=== PATIENT | female | born 1950 | race Caucasian/White ===

== ENCOUNTER 2021-07-04 12:46 | Outpatient (CLI) | payer MEDICARE, SELFPAY ==
--- NOTE | 2021-07-04 | XR_ITS ---
WS: [id number] SCREENING DEXA SCAN [employer] CLINICAL INFORMATION: ASYMPTOMATIC MENOPAUSE COMPARISON: 2018 FINDINGS: The L1-L4 bone mineral density measures 1.256 g/cm2. This corresponds to a T score score of 0.6 and Z score of 1.2. Left femoral neck bone mineral density measures 1.101 g/cm2. This corresponds to a T score of 0.7 and Z score of 1.4. Right femoral neck bone mineral density measures 1.064 g/cm2. This corresponds to a T score 0.4of and Z score of 1.1. Mean femoral neck bone mineral density measures 1.082 g/cm2. This corresponds to a T score of 0.6 and Z score of 1.2. XR/XR DEXA axial skeleton* [id number] IMPRESSION: Normal bone mineralization. Patient's FRAX calculated 10 year probability for major osteoporotic fracture i s 7.1 % and osteoporotic hip fracture is 0.4%.
--- NOTE | 2021-07-04 13:08 | MM_ITS ---
WS: [id number] SCREENING DIGITAL MAMMOGRAM WITH CAD HISTORY: SCREENING COMPARISON: 11/12/2018 and 10/04/2016 Bilateral CC and MLO views submitted. Computer aided detection analyzed. Breast composition: The breasts are almost entirely fatty. No suspicious masses, microcalcifications or architectural distortion. Benign scattered calcifications in each breast. MM/[place] [id number] IMPRESSION: BI-RADS: 2-Benign FOLLOW UP: 1 Year Follow-up
== END 2021-07-04 12:47 | disposition home or self-care (01) ==
LOC: RADSHAW 12:56
PROVIDERS: PCP Family Medicine; Visit Provider Family Medicine
DX: Z12.31 Encounter for screening mammogram for malignant neoplasm of breast (principal); Z78.0 Asymptomatic menopausal state
CPT/HCPCS: 77067; 77080

== ENCOUNTER 2022-02-07 05:46 | Outpatient (CLI) | payer MEDICARE, SELFPAY ==
--- NOTE | 2022-02-07 05:56 | US_ITS ---
WS: [id number] INDICATION: LEFT calf pain post trauma. TECHNIQUE: Ultrasound soft tissue FINDINGS: Ultrasound soft tissue area of concern LEFT calf. Complex elongated fluid collection extend s from the proximal to the mid calf measuring approximately 14.5 cm in total length. This measures ap proximately 1.4 cm in transverse dimension. This likely represents resolving hematoma from recent tra gabrilea or muscle tear. US/US soft tissue/extremity [id number] IMPRESSION: Complex elongated fluid collection extending from proximal to mid c radames measuring approximately 14.5 cm in length by 1.4 cm transverse. This likely represents resolving hematoma from recent trauma/muscle tear
== END 2022-02-07 05:47 | disposition home or self-care (01) ==
LOC: RAD 05:48
PROVIDERS: PCP Family Medicine; Visit Provider Family Medicine
DX: M79.662 Pain in left lower leg (principal)
CPT/HCPCS: 76882

== ENCOUNTER 2023-01-23 09:09 | Outpatient (CLI) | payer MEDICARE, SELFPAY ==
--- NOTE | 2023-01-23 09:17 | MM_ITS ---
WS: [id number] BILATERAL 3D TOMOSYNTHESIS DIGITAL SCREENING MAMMOGRAPHY WITH CAD CLINICAL INFORMATION: SCREENING HISTORY: Screening mammogram. No current complaints. COMPARISON: 2020 TECHNIQUE: Bilateral CC and MLO views. FINDINGS: Scattered fibroglandular densities bilaterally. No suspicious focal mass, asymmetry, calcifications, or architectural distortion. No evidence of malignancy. A few incidental punctate calcifications. Inc idental benign oil cysts LEFT breast. MM/[place] [id number] IMPRESSION: BI-RADS: 2-Benign FOLLOW UP: 1 Year Follow-up Recommend return to annual screening mammography.
== END 2023-01-23 09:10 | disposition home or self-care (01) ==
LOC: RAD 09:15
PROVIDERS: PCP Family Medicine; Visit Provider Family Medicine
DX: Z12.31 Encounter for screening mammogram for malignant neoplasm of breast (principal)
CPT/HCPCS: 77063; 77067

== ENCOUNTER 2023-02-02 09:53 | Inpatient (IN) | payer MEDICARE, SELFPAY ==
[2023-02-02] VITALS (10 sets, daily range): BP systolic 100–159; BP diastolic 49–76; PULSE 66–97; RESP 12–20; TEMP 36.6–37.3; O2SAT 91–97; BMI 30.1
--- NOTE | 2023-02-02 10:01 | CT_ITS ---
WS: [id number] CT pelvis TECHNIQUE: Contrast-enhanced CT of the pelvis with coronal and sagittal reformatted images. CLINICAL INFORMATION: L buttock abscess COMPARISON: None. DLP: 678.[address] scans at [facility] use at least one of these dose optimization techniques: automated e xposure control; mA and/or kV adjustment per patient size (includes targeted exams where dose is matc hed to clinical indication); or iterative reconstruction. FINDINGS: Inflammatory stranding and edema compatible with cellulitis involving the LEFT medial gluteal soft ti ssues. No evidence of drainable abscess or fluid collection. Associated skin thickening. Aortic and iliac calcification. Sigmoid diverticulosis. No evidence of acute diverticulitis. Disc spa ce narrowing lower lumbar spine. No other suspicious findings. CT/CT pelvis w con* [id number] IMPRESSION: Cellulitis involving the LEFT gluteal soft tissues and gluteal fold. No drainab le abscess or fluid collection.
--- NOTE | 2023-02-02 10:12 | ED_ITS ---
HPI - Skin/Abscess/Foreign Bdy General: Chief complaint: Skin/Abscess/Foreign Body Stated complaint: abcsess, pain, fever Time Seen by Provider: 02/02/23 10:00 Source: patient Mode of arrival: ambulatory History of Present Illness: 72-year-old female who presents to the emergency room with complaints of left buttock abscess. She was seen 3 days ago her primary care doctor that did not improve any flexion at that time so she was started on Bactrim and had a follow- up today. He seen Dr. Ly Rodas in the office today they attempted to anesthetize it locally and incised and drained but were not able to get much for drainage he will had been draining scant amount prior to seeing the doctor this morning. It is gotten significantly larger and more tender is in the left lower buttock with localized induration and swelling extending towards the perineum and the rectum. She has not previously had episodes like this before. MD complaint: abscess/boil Onset (ago): day(s) Location: buttocks (L) Severity: moderate Pain Consistency: constant Relieving factors: none Exacerbating factors: palpation Associated symptoms: Deny arthralgias, chills, cough, fever(s), itching, myalgias, nausea, rigidity, short of breath or vomiting Treatments prior to arrival: bandages and other (Attempted incision and drainage at physician's office) Review of Systems Const: Denies: fever(s) or chills Card: Denies: chest pain, edema, dyspnea on exertion or orthopnea Resp: Denies: dyspnea, productive cough or non-productive cough GI: Denies: nausea or vomiting : Denies: flank pain, difficulty voiding, dysuria, urinary frequency or urinary urgency Skin/Breast: Reports: erythema, skin pain and skin tenderness [facility] PFSH: Medical History Hyperlipemia Surgical History History of hysterectomy Social History Smoking and tobacco status: never smoked Physical Exam Const: COMMON NORMALS: no acute distress GENERAL APPEARANCE: cooperative and comfortable ORIENTATION/CONSCIOUSNESS: Yes awake, Yes oriented to person, Yes oriented to place and Yes oriented to time HENMT: COMMON NORMALS: normocephalic, atraumatic and hearing grossly normal bilaterally HEAD & SCALP: normocephalic and atraumatic Resp: COMMON NORMALS: normal respiratory effort, No retractions, No use of accessory muscles and clear to auscultation bilaterally AUSCULTATION: clear to auscultation bilaterally Cardio: COMMON NORMALS: regular rate, regular rhythm and No murmurs present (Cardio) RATE: regular rate RHYTHM: regular rhythm GI: COMMON NORMALS: Soft to palpation and No hepatosplenomegaly present AUSCULTATION: Yes normoactive bowel sounds PALPATION: Yes Soft to palpation, No Tenderness to palpation present (GI), No Guarding due to palpation present (GI) and Yes No hepatosplenomegaly present Extremity: COMMON NORMALS: normal to inspection, capillary refill normal, no clubbing, cyanosis or edema, no calf tenderness and no pedal edema Neuro: SENSORIUM/ORIENTATION: Yes oriented to person, Yes oriented to place and Yes oriented to time Skin: OTHER: Left buttock abscess near the gluteal fold. Scant drainage. Tender to palpation approximately 8 to 10 cm in length and 6 cm in width on palpation full depth of it is difficult to appreciate on physical exam. Nonfluctuant on palpat ion. Course Vital Signs: Vital signs: Vital Signs Temperature 98.3 F 02/02/23 09:55 Pulse Rate 78 02/02/23 13:09 Respiratory Rate 20 H 02/02/23 10:28 Blood Pressure 120/53 02/02/23 13:09 Pulse Oximetry 94 02/02/23 13:09 Oxygen Delivery Me thod Room Air 02/02/23 09:55 MDM - Skin/Abscess/Foreign Bdy Medicial Decision Making Patient has a large area of cellulitis it is indurated but there is no fluctuant area or drainable abscess noted on the CT. Will admit for IV antibiotics given failure of outpatient antibiotics and progression of symptoms. Discussed with hospitalist cultures done vancomycin initiated. Medical Records I reviewed the patient's medical records. Lab Data I reviewed the patient's lab results. 02/02/23 10:24 02/02/23 10:[address] 02/02/23 10:01 IMPRESSION: Cellulitis involving the LEFT gluteal soft tissues and gluteal fold. No drainable abscess or fluid collection. Laboratory Results WBC 11.4 10^3/uL (4.0-10.0) H 02/02/23 10:24 RBC 4.38 10^6/uL (4.1-5.3) 02/02/23 10:24 Hgb 12.6 g/dL (11.5-15.3) 02/02/23 10:24 Hct 39.6 % (37.0-47.0) 02/02/23 10:24 MCV 90.4 fl (81-99) 02/02/23 10:24 MCH 28.8 pg (28.0-34.0) 02/02/23 10:24 MCHC 31.8 g/dL (30.0-36.0) 02/02/23 10:24 RDW 12.8 % (12.1-15.1) 02/02/23 10:24 Plt Count 269 10^3/cmm (130-400) 02/02/23 10:24 MPV 10.8 fL (7.4-10.4) H 02/02/23 10:24 Neut % (Auto) 78.9 % 02/02/23 10:24 Lymph % (Auto) 9.8 % 02/02/23 10:24 [place] % (Auto) 9.4 % 02/02/23 10:24 Eos % (Auto) 1.1 % 02/02/23 10:24 Baso % (Auto) 0.4 % 02/02/23 10:24 Neut # (Auto) 8.96 10^3/uL (1.8-7.7) H 02/02/23 10:24 Lymph # (Auto) 1.1 10^3/uL (0.8-4.8) 02/02/23 10:24 [place] # (Auto) 1.1 10^3/uL (0.2-0.9) H 02/02/23 10:24 Eos # (Auto) 0.1 10^3/uL (0.0-0.8) 02/02/23 10:24 Baso # (Auto) 0.0 10^3/uL (0.0-0.1) 02/02/23 10:24 Nucleated RBC % (auto) 0 % 02/02/23 10:24 Nucleated RBCs # 0.0 /100WBC 02/02/23 10:24 Sodium 137 mmol/L (136-145) 02/02/23 10:24 Potassium 4.2 mmol/L (3.5-5.1) 02/02/23 10:24 Chloride 101 mmol/L (98-107) 02/02/23 10:24 Carbon Dioxide 22 mmol/L (22-29) 02/02/23 10:24 Anion Gap 18.2 (5-19) 02/02/23 10:24 BUN 15 mg/dL (8-23) 02/02/23 10:24 Creatinine 0.7 mg/dL (0.5-0.9) 02/02/23 10:24 GFR Calculation Not Reportable 02/02/23 10:24 Glucose 97 mg/dL (65-115) 02/02/23 10:24 Calculated Osmolality 285 mOsm/kg (285-295) 02/02/23 10:24 Calcium 8.5 mg/dL (8.5-10.5) 02/02/23 10:24 Total Bilirubin 0.5 mg/dL (0.15-1.2) 02/02/23 10:24 AST 20 U/L (0-32) 02/02/23 10:24 ALT 22 U/L (0-33) 02/02/23 10:24 Alkaline Phosphatase 96 U/L (35-105) 02/02/23 10:24 C-Reactive Protein 95.1 mg/L (0.0-4.9) H 02/02/23 10:24 Total Protein 7.2 g/dL (6.6-8.7) 02/02/23 10:24 Albumin 3.9 g/dL (3.5-5.2) 02/02/23 10:24 Globulin 3.3 g/dL (1.3-4.6) 02/02/23 10:24 Urine Color Yellow (Yellow) 02/02/23 10:36 Urine Appearance Clear (CLEAR) 02/02/23 10:36 Urine pH 6 (5-7) 02/02/23 10:36 Ur Specific [place] 1.015 (1.005-1.030) 02/02/23 10:36 Urine Protein Neg (Negative) 02/02/23 10:36 Urine Glucose (UA) Norm (Normal) 02/02/23 10:36 Urine Ketones Negative (Negative) 02/02/23 10:36 Urine Blood Neg (Negative) 02/02/23 10:36 Urine Nitrate Negative (Negative) 02/02/23 10:36 Urine Bilirubin 1+ (Negative) H 02/02/23 10:36 Urine Urobilinogen 1 mg/dL (Negative) H 02/02/23 10:36 Ur Leukocyte Esterase Negative (Negative) 02/02/23 10:36 Discharge Plan Discharge Patient Disposition: Admitted As Inpatient Admit Provider: Bhavesh Whalen Clinical Impression: Cellulitis Condition: Stable Coding Level of Care Code ED Jumpb[employer] for Samira Almanza
[2023-02-02] MEDS: ondansetron 2 mg/ML SDV 2 mL 4 MG IVP (10:28)
[2023-02-02] MEDS: morphine 4 mg/mL SDV 1 mL 2 MG IVP (10:28)
[2023-02-02 10:46] LABS: Basophils % 0.4 %; Eosinophils # 0.1 10^3/uL (0.0-0.8); Eosinophils % 1.1 %; Hematocrit 39.6 % (37.0-47.0); Hemoglobin 12.6 g/dL (11.5-15.3); Lymphocytes # 1.1 10^3/uL (0.8-4.8); Lymphocytes % 9.8 %; Mean Corpuscular HGB Conc 31.8 g/dL (30.0-36.0); Mean Corpuscular Hemoglobin 28.8 pg (28.0-34.0); Mean Corpuscular Volume 90.4 fl (81-99); Mean Platelet Volume 10.8 fL (7.4-10.4); Monocytes # 1.1 10^3/uL (0.2-0.9); Monocytes % 9.4 %; Neutrophils # 8.96 10^3/uL (1.8-7.7); Neutrophils % 78.9 %; Nucleated Red Blood Cells % 0 %; Platelet Count 269 10^3/cmm (130-400); Red Blood Count 4.38 10^6/uL (4.1-5.3); Red Cell Distribution Width 12.8 % (12.1-15.1); White Blood Count 11.4 10^3/uL (4.0-10.0)
[2023-02-02 10:52] LABS: Add Urine Microscopic? NO; Charge for UA Resulting for Rev
[2023-02-02 11:06] LABS: Alanine Aminotransferase 22 U/L (0-33); Albumin Level 3.9 g/dL (3.5-5.2); Alkaline Phosphatase 96 U/L (35-105); Anion Gap 18.2 (5-19); Aspartate Amino Transferase 20 U/L (0-32); Blood Urea Nitrogen 15 mg/dL (8-23); Calcium 8.5 mg/dL (8.5-10.5); Carbon Dioxide 22 mmol/L (22-29); Chloride 101 mmol/L (98-107); Creatinine Clr Calc Pharmacy 80.6454; Globulin 3.3 g/dL (1.3-4.6); Glucose 97 mg/dL (65-115); Osmolality Calculated 285 mOsm/kg (285-295); Potassium 4.2 mmol/L (3.5-5.1); Sodium 137 mmol/L (136-145); Total Bilirubin 0.5 mg/dL (0.15-1.2); Total Protein 7.2 g/dL (6.6-8.7)
[2023-02-02 11:25] LABS: Glucose Urine UA Norm (Normal); Protein Urine Neg (Negative); Specific Gravity, Urine 1.015 (1.005-1.030); Urine Appearance Clear (CLEAR); Urine Color Yellow (Yellow); pH Urine 6 (5-7)
[2023-02-02 11:26] LABS: Bilirubin Urine 1+ (Negative); Blood Urine Neg (Negative); Ketones Urine Negative (Negative); Leukocyte Esterase Urine Negative (Negative); Nitrate Urine Negative (Negative); Urobilinogen Urine 1 mg/dL (Negative)
[2023-02-02] MEDS: vancomycin 1,000 MG in sodium chloride 0.9% 250 ML 250 MG IV (11:47)
--- NOTE | 2023-02-02 12:39 | PM.HP ---
Providers/Chief Complaint Admitting Physician: Bhavesh Whalen Primary Care Provider: Ly Rodas MD Chief Complaint: abcsess, pain, fever History of Present Illness Vero Magana is a 72 year old female with past medical history significant for hypertension, hyperlipidemia and GERD who presents to the emergency department at the direction of her family physician for further evaluation of infection on her buttocks. Patient reports she was in her usual state of health until last Sunday after she was outside for a while and noticed pain develop on her buttocks later that day. She was evaluated on Sunday and prescribed Bactrim for cellulitis. Despite this, symptoms continue to worsen. She endorses associated chills and fever as well as cold sweats. Also endorses pain, swelling and erythema on left gluteal cleft. Denies history of she is evaluated again today prior similar infections. She was again evaluated today in primary care clinic. Per report, there was an attempt at aspiration possible abscess however no pus was obtained. She was evaluated in the ED for further management. CT scan at that time showed extensive left gluteal soft tissue swelling consistent with cellulitis. No drainable abscess or fluid collection was noted. Review of Systems Narrative: A complete review of systems was obtained and is negative except as stated in HPI. Medications/Allergies Home Medications Medication Instructions Recorded Confirmed Last Taken Type ascorbate calcium (vitamin C) 500 1,000 mg PO QAM 03/16/22 02/02/23 02/01/23 History mg tablet blood sugar diagnostic (Accu-Chek #10 ea 03/16/22 02/02/23 Unknown History Maria G Plus test strips) fluticasone propionate 50 2 spray intranasal DAILY PRN 03/16/22 02/02/23 Unknown History mcg/actuation nasal Allergy Symptoms spray,suspension krill oil 500 mg capsule 500 mg PO QAM 03/16/22 02/02/23 02/01/23 History lisinopril 20 mg tablet 20 mg PO QAM 03/16/22 02/02/23 02/01/23 History loratadine 10 mg tablet 10 mg PO QAM 03/16/22 02/02/23 02/01/23 History pantoprazole 40 mg tablet,delayed 20 mg PO QAM 03/16/22 02/02/23 02/01/23 History release simvastatin 40 mg tablet 40 mg PO QAM 03/16/22 02/02/23 02/01/23 History alprazolam 0.25 mg tablet (Xanax) 0.25 mg PO DAILY PRN Anxiety 02/02/23 02/02/23 Unknown History calcium carbonate 500 mg calcium 1,000 mg PO QAM 02/02/23 02/02/23 02/01/23 History (1,250 mg) tablet sulfamethoxazole 800 1 tab PO BID 02/02/23 02/02/23 02/02/23 History mg-trimethoprim 160 mg tablet Allergies Allergy/AdvReac Type Severity Reaction Status Date / Time No Known Drug Allergies Allergy Unknown Unknown Verified 02/02/23 10:53 PFSH Acute PFSH: Medical History Anxiety GERD (gastroesophageal reflux disease) Hyperlipemia Hypertension Surgical History History of hysterectomy Family History Father Lung cancer Mother Heart disease Stroke TIA (transient ischemic attack) Social History Smoking and tobacco status: never smoked Alcohol intake: never Substance/Drug Use: never Vitals/I&O/Wt Last Vital Signs Temp 98.3 F 02/02/23 09:55 Pulse 78 02/02/23 11:51 Resp 20 H 02/02/23 10:28 BP 129/66 02/02/23 12:21 Pulse Ox 94 02/02/23 12:21 O2 Del Method Room Air 02/02/23 09:55 Weight last 48 hrs Weight 95.254 kg Physical Exam Narrative: General: Patient is awake and alert. Pleasant. Head: Normocephalic. Atraumatic. EOM intact. Neck: No JVD. Cardiovascular: RRR. No gallops. 2+ systolic ejection murmur. No peripheral edema. Lungs: Clear to auscultation, no use of accessory muscles, no crackles or wheezes. Skin: No jaundice. Marked swelling, erythema, and tenderness to palpation involving the left gluteal cleft with some extension toward perineum. Abdomen: Normal bowel sounds, abdomen soft and nontender. Extremities: No cyanosis or clubbing. Musculoskeletal: No swollen or erythematous joints. Neurological: Moves all 4 extremities. No myoclonus. Data 02/02/23 10:24 02/02/23 10:24 Micro: Microbiology 02/02/23 10:36 Blood Culture - Preliminary Blood SPECIMEN COLLECTED 02/02/23 10:24 Blood Culture - Preliminary Blood SPECIMEN COLLECTED A&P Assessment and plan (1) Cellulitis: Severe cellulitis of left gluteal cleft with extension to perineum Failed oral antibiotics MRSA swab Inflammatory markers Start vancomycin, pharmacy to dose Start ceftriaxone Follow-up cultures Serial exams (2) GERD (gastroesophageal reflux disease): Continue PPI (3) Hypertension: Continue lisinopril (4) Anxiety: Xanax as needed (5) Hyperlipemia: Continue statin Plan DVT prophylaxis: Low risk CODE STATUS: Full code Attestations Medical Necessity Statement*: Patient presents with worsening gluteal cleft cellulitis despite oral antibiotic treatment requiring hospitalization for IV antibiotics with expected hospitalization not to cross 2 midnights. Coding Level of Care Code Acute Code for [facility] Diagnoses Cellulitis L03.90 GERD (gastroesophageal reflux disease) K21.9 Hypertension I10 Anxiety F41.9 Hyperlipemia E78.5
[2023-02-02 13:18] LABS: C Reactive Protein 95.1 mg/L (0.0-4.9)
[2023-02-02 14:06] LABS: Estmated Average Glucose 114; Hemoglobin A1C 5.6 % (4.0-6.0)
[2023-02-02 14:13] LABS: Procalcitonin 0.12 ng/mL (0-0.5)
[2023-02-02] MEDS: HYDROcodone-acetaminophen 5-325 mg Tablet 1 TAB PO ×2 (14:51→21:06)
[2023-02-02] MEDS: sodium chloride 0.9% 1,000 ML 100 ML IV (14:52)
[2023-02-02] MEDS: acetaminophen 325 mg Tablet 650 MG PO (17:37)
[2023-02-02] MEDS: cefTRIAXone 2,000 MG in sodium chloride 0.9% (plus) 50 ML 100 MG IV (17:38)
[2023-02-02] MEDS: atorvastatin 40 mg Tablet 20 MG PO (21:06)
[2023-02-02] MEDS: sennosides 8.6 mg Tablet 17.2 MG PO (21:06)
[2023-02-02] MEDS: vancomycin 1,500 MG/300 ML PIGGYBACK 200 MG IV (21:07)
[2023-02-03 03:40] VITALS: BP 120/69; PULSE 68; RESP 12; TEMP 36.6; O2SAT 93
[2023-02-03] MEDS: HYDROcodone-acetaminophen 5-325 mg Tablet 1 TAB PO ×2 (03:59→13:53)
[2023-02-03] MEDS: lisinopril 20 mg Tablet PO (05:36)
[2023-02-03] MEDS: pantoprazole DR 40 mg Tablet PO (05:36)
[2023-02-03] MEDS: loratadine 10 mg Tablet PO (05:36)
[2023-02-03 05:45] LABS: Basophils % 0.3 %; Eosinophils # 0.3 10^3/uL (0.0-0.8); Hematocrit 37.6 % (37.0-47.0); Hemoglobin 12.1 g/dL (11.5-15.3); Lymphocytes # 1.6 10^3/uL (0.8-4.8); Lymphocytes % 18.2 %; Mean Corpuscular HGB Conc 32.2 g/dL (30.0-36.0); Mean Corpuscular Hemoglobin 29.5 pg (28.0-34.0); Mean Corpuscular Volume 91.7 fl (81-99); Mean Platelet Volume 10.7 fL (7.4-10.4); Monocytes # 0.8 10^3/uL (0.2-0.9); Monocytes % 8.9 %; Neutrophils # 6.03 10^3/uL (1.8-7.7); Neutrophils % 69.3 %; Nucleated Red Blood Cells % 0 %; Platelet Count 236 10^3/cmm (130-400); White Blood Count 8.7 10^3/uL (4.0-10.0)
[2023-02-03 06:05] LABS: Anion Gap 15.4 (5-19); Blood Urea Nitrogen 13 mg/dL (8-23); Calcium 8.6 mg/dL (8.5-10.5); Carbon Dioxide 24 mmol/L (22-29); Chloride 101 mmol/L (98-107); Creatinine Clr Calc Pharmacy 80.6454; Glucose 105 mg/dL (65-115); Magnesium 2.3 mg/dL (1.7-2.3); Osmolality Calculated 282 mOsm/kg (285-295); Phosphorus 3.9 mg/dL (2.5-4.5); Potassium 4.4 mmol/L (3.5-5.1); Sodium 136 mmol/L (136-145)
[2023-02-03 07:30] VITALS: BP 116/62; PULSE 65; RESP 18; TEMP 36.5; O2SAT 90
[2023-02-03] MEDS: vancomycin 1,500 MG/300 ML PIGGYBACK 200 MG IV ×2 (08:24→20:18)
[2023-02-03 11:37] VITALS: BP 112/41; PULSE 62; RESP 16; TEMP 36.4; O2SAT 94
[2023-02-03 16:15] VITALS: BP 112/61; PULSE 63; RESP 16; TEMP 36.5; O2SAT 93
--- NOTE | 2023-02-03 16:32 | P.PN_ITS ---
Subjective Subjective: Patient continues to endorse buttock pain at her wound site. She reports drainage overnight. Per nursing, bandage has saturated twice. Patient reports some firmness but thinks it is more distal now. Reports low grade fevers and improving chills overnight. Reports appetite is OK. Denies nausea or emesis. Medications: Reviewed: Yes Vitals/I&O/Wt Last Vital Signs Temp 97.7 F 02/03/23 16:15 Pulse 63 02/03/23 16:15 Resp 16 02/03/23 16:15 BP 112/61 02/03/23 16:15 Pulse Ox 93 02/03/23 16:15 O2 Del Method Room Air 02/03/23 16:15 02/03/23 02/03/23 02/03/23 06:59 14:59 22:59 Intake Total 450 / 2030 780 / 780 Balance 450 / 2029 780 / 780 Weight last 48 hrs Weight 95.254 kg Physical Exam Narrative: General: Patient is awake and alert. Very pleasant. Head: Normocephalic. Atraumatic. EOM intact. Neck: No JVD. Cardiovascular: RRR. No gallops. 2+ systolic ejection murmur. No peripheral edema. Lungs: Clear to auscultation, no use of accessory muscles, no crackles or wheezes. Skin: No jaundice. Marked swelling, erythema, firmness, and tenderness to palpation involving the left gluteal cleft slightly improved from priro exam. Abdomen: Normal bowel sounds, abdomen soft and nontender. Extremities: No cyanosis or clubbing. Musculoskeletal: No swollen or erythematous joints. Neurological: Moves all 4 extremities. No myoclonus. Data 02/03/23 05:08 02/03/23 05:08 Micro: Microbiology 02/02/23 15:23 MRSA Culture - Final Nose 02/02/23 10:24 Blood Culture - Preliminary Blood NEGATIVE TO DATE 02/02/23 10:36 Blood Culture - Preliminary Blood NEGATIVE TO DATE A&P Assessment and plan (1) Cellulitis: Severe cellulitis of left gluteal cleft with extension to perineum Failed oral antibiotics w/ Bactrim MRSA swab pending Continue vancomycin, pharmacy to dose (02/02-P) Continue ceftriaxone (02/02-P) Follow-up cultures Serial exams Lab holiday in AM (2) GERD (gastroesophageal reflux disease): Continue PPI (3) Hypertension: Continue lisinopril (4) Anxiety: Xanax as needed (5) Hyperlipemia: Continue statin Plan DVT prophylaxis: Low risk CODE STATUS: Full code Attestations Medical Necessity Statement*: Patient requires ongoing hospitalization for IV abx, cultures, and IV analgesics now with expected hospitalization to cross two midnights. Coding Level of Care Code Acute Code for [facility] Diagnoses Cellulitis L03.90 GERD (gastroesophageal reflux disease) K21.9 Hypertension I10 Anxiety F41.9 Hyperlipemia E78.5
[2023-02-03] MEDS: cefTRIAXone 2,000 MG in sodium chloride 0.9% (plus) 50 ML 100 MG IV (17:08)
[2023-02-03 19:02] VITALS: BP 147/54; PULSE 62; RESP 16; TEMP 36.6; O2SAT 93
[2023-02-03] MEDS: sennosides 8.6 mg Tablet 17.2 MG PO (20:17)
[2023-02-03] MEDS: atorvastatin 40 mg Tablet 20 MG PO (20:17)
[2023-02-03 20:26] LABS: Vancomycin Trough 13.2 ug/mL (10-15)
[2023-02-03 23:51] VITALS: BP 140/60; PULSE 64; RESP 16; TEMP 36.7; O2SAT 96
[2023-02-04 04:00] VITALS: BP 136/68; PULSE 72; RESP 18; TEMP 36.7; O2SAT 96
[2023-02-04] MEDS: pantoprazole DR 40 mg Tablet PO (05:27)
[2023-02-04] MEDS: loratadine 10 mg Tablet PO (05:27)
[2023-02-04] MEDS: lisinopril 20 mg Tablet PO (05:27)
[2023-02-04 07:59] VITALS: BP 148/65; PULSE 63; RESP 17; TEMP 36.6; O2SAT 95
[2023-02-04] MEDS: vancomycin 1,500 MG/300 ML PIGGYBACK 200 MG IV ×2 (09:15→20:40)
[2023-02-04 12:00] VITALS: BP 136/71; PULSE 70; RESP 18; TEMP 36.5; O2SAT 93
[2023-02-04 16:00] VITALS: BP 154/78; PULSE 60; RESP 16; TEMP 36.6; O2SAT 96
[2023-02-04] MEDS: cefTRIAXone 2,000 MG in sodium chloride 0.9% (plus) 50 ML 100 MG IV (17:28)
[2023-02-04 20:00] VITALS: BP 135/71; PULSE 60; RESP 16; TEMP 36.4; O2SAT 95
[2023-02-04] MEDS: sennosides 8.6 mg Tablet 17.2 MG PO (20:39)
[2023-02-04] MEDS: atorvastatin 40 mg Tablet 20 MG PO (20:39)
--- NOTE | 2023-02-04 21:49 | PM.PN ---
Subjective Subjective: Patient reports improvement in her fevers, chills, and night sweats overnight. Reports pain in her buttock is slightly better today but still present. She feels like the wound may be moving up toward the perineum area. Reports she has been ambulating around. Otherwise denies other new complaints. Medications: Reviewed: Yes Vitals/I&O/Wt Last Vital Signs Temp 97.5 F L 02/04/23 20:00 Pulse 60 02/04/23 20:00 Resp 16 02/04/23 20:00 BP 135/71 02/04/23 20:00 Pulse Ox 95 02/04/23 20:00 O2 Del Method Room Air 02/04/23 20:00 02/04/23 02/04/23 02/04/23 06:59 14:59 22:59 Intake Total 1260 / 1260 770 / 2030 Balance 1260 / 1260 770 / 2030 Physical Exam Narrative: General: Patient is awake and alert. Very pleasant. Head: Normocephalic. Atraumatic. EOM intact. Neck: No JVD. Cardiovascular: RRR. No gallops. 2+ systolic ejection murmur. Lungs: Clear to auscultation, no use of accessory muscles, no crackles or wheezes. Skin: No jaundice. Swelling, erythema, firmness, and tenderness to palpation involving the left gluteal cleft improved from prior exams. Abdomen: Normal bowel sounds, abdomen soft and nontender. Extremities: No cyanosis or clubbing. Musculoskeletal: No swollen or erythematous joints. Neurological: Moves all 4 extremities. No myoclonus. Data 02/03/23 05:08 02/03/23 05:08 A&P Assessment and plan (1) Cellulitis: Severe cellulitis of left gluteal cleft with extension to perineum Failed oral antibiotics w/ Bactrim MRSA swab negative, consider d/c vancomycin when cx neg at 48 hrs Continue vancomycin, pharmacy to dose (02/02-P) Continue ceftriaxone (02/02-P) Consider home IV abx vs repeat trial of oral abx this week Continue wound care, highly complex wound with high risk of morbidity given anatomic location Follow-up cultures Serial exams (2) GERD (gastroesophageal reflux disease): Continue PPI (3) Hypertension: Continue lisinopril (4) Anxiety: Xanax as needed (5) Hyperlipemia: Continue statin Plan DVT prophylaxis: Low risk CODE STATUS: Full code Attestations Medical Necessity Statement*: Patient requires ongoing hospitalization for IV abx, cultures, and analgesics. Coding Level of Care Code Acute Code for [facility] Diagnoses Cellulitis L03.90 GERD (gastroesophageal reflux disease) K21.9 Hypertension I10 Anxiety F41.9 Hyperlipemia E78.5
[2023-02-05] VITALS: BP 125/70; PULSE 60; RESP 16; TEMP 36.6; O2SAT 94
[2023-02-05 03:26] VITALS: BP 121/69; PULSE 60; RESP 16; TEMP 36.4; O2SAT 94
[2023-02-05] MEDS: pantoprazole DR 40 mg Tablet PO (05:23)
[2023-02-05] MEDS: lisinopril 20 mg Tablet PO (05:23)
[2023-02-05] MEDS: loratadine 10 mg Tablet PO (05:23)
[2023-02-05] MEDS: acetaminophen 325 mg Tablet 650 MG PO ×2 (05:25→20:35)
[2023-02-05 05:53] LABS: Basophils % 0.7 %; Eosinophils # 0.3 10^3/uL (0.0-0.8); Eosinophils % 5.3 %; Hematocrit 40.2 % (37.0-47.0); Hemoglobin 13.1 g/dL (11.5-15.3); Lymphocytes # 1.8 10^3/uL (0.8-4.8); Lymphocytes % 30.1 %; Mean Corpuscular HGB Conc 32.6 g/dL (30.0-36.0); Mean Corpuscular Hemoglobin 29.7 pg (28.0-34.0); Mean Corpuscular Volume 91.2 fl (81-99); Mean Platelet Volume 10.2 fL (7.4-10.4); Monocytes # 0.4 10^3/uL (0.2-0.9); Monocytes % 7.2 %; Neutrophils # 3.43 10^3/uL (1.8-7.7); Neutrophils % 56.4 %; Nucleated Red Blood Cells % 0 %; Platelet Count 288 10^3/cmm (130-400); Red Blood Count 4.41 10^6/uL (4.1-5.3); Red Cell Distribution Width 12.5 % (12.1-15.1); White Blood Count 6.1 10^3/uL (4.0-10.0)
[2023-02-05 06:08] LABS: Albumin Level 3.5 g/dL (3.5-5.2); Anion Gap 15.3 (5-19); Blood Urea Nitrogen 12 mg/dL (8-23); Calcium 8.6 mg/dL (8.5-10.5); Carbon Dioxide 25 mmol/L (22-29); Chloride 103 mmol/L (98-107); Creatinine Clr Calc Pharmacy 80.6454; Glucose 103 mg/dL (65-115); Magnesium 2.3 mg/dL (1.7-2.3); Phosphorus 3.8 mg/dL (2.5-4.5); Potassium 4.3 mmol/L (3.5-5.1); Sodium 139 mmol/L (136-145)
[2023-02-05 07:49] VITALS: BP 156/71; PULSE 62; RESP 16; TEMP 36.6; O2SAT 96
[2023-02-05] MEDS: calcium carbonate 500 mg Chew Tablet 1000 MG PO (08:24)
[2023-02-05] MEDS: vancomycin 1,500 MG/300 ML PIGGYBACK 200 MG IV (09:00)
[2023-02-05 12:00] VITALS: BP 156/81; PULSE 65; RESP 18; TEMP 36.5; O2SAT 96
[2023-02-05 12:02] LABS: Thyroid Stimulating Hormone 1.29 uIU/mL (0.27-4.20)
[2023-02-05 12:10] LABS: Iron 95 ug/dL (37-145); Percent Saturation 37.4 % (20-50); Total Iron Binding Capacity 254 mcg/dl; Unsaturated Iron Binding 159 ug/dL (112-347); Vitamin B12 355 pg/mL (232-1245)
[2023-02-05] MEDS: piperacillin-tazobactam 3.375 GM in sodium chloride 0.9% (plus) 50 ML IV ×2 (13:09→20:33)
--- NOTE | 2023-02-05 13:51 | PM.PN ---
Subjective Subjective: Hospital course, labs appreciated. Patient states she is feeling better. Denies any nausea, vomiting, headache. States she is able to move around without any difficulty now. Able to sit up straight. Has remained hemodynamically stable and afebrile. Patient reports improvement in her fevers, chills, and night sweats overnight. Reports pain in her buttock is slightly better today but still present. She feels like the wound may be moving up toward the perineum area. Reports she has been ambulating around. Otherwise denies other new complaints. Medications: Reviewed: Yes Vitals/I&O/Wt Last Vital Signs Temp 97.7 F 02/05/23 12:00 Pulse 65 02/05/23 12:00 Resp 18 02/05/23 12:00 BP 156/81 02/05/23 12:00 Pulse Ox 96 02/05/23 12:00 O2 Del Method Room Air 02/05/23 12:00 02/04/23 02/05/23 02/05/23 22:59 06:59 14:59 Intake Total 1070 / 2330 200 / 2530 660 / 660 Balance 1070 / 2330 200 / 2530 660 / 660 Physical Exam Narrative: General: Patient is awake and alert. Very pleasant. Head: Normocephalic. Atraumatic. EOM intact. Neck: No JVD. Cardiovascular: RRR. No gallops. 2+ systolic ejection murmur. Lungs: Clear to auscultation, no use of accessory muscles, no crackles or wheezes. Skin: No jaundice. Swelling, erythema, firmness, and tenderness to palpation involving the left gluteal cleft improved from prior exams. Abdomen: Normal bowel sounds, abdomen soft and nontender. Extremities: No cyanosis or clubbing. Musculoskeletal: No swollen or erythematous joints. Neurological: Moves all 4 extremities. No myoclonus. Data 02/05/23 05:31 02/05/23 05:31 Micro: Microbiology 02/03/23 11:53 Wound Culture - Preliminary Buttock Coag positive Staphylococcus A&P Assessment and plan (1) Cellulitis: Appreciate CT pelvis results. No abscess or collection to drain. MRSA swab negative. Leukocytosis resolved. Stop vancomycin, ceftriaxone. Switch to Zosyn. Follow-up wound cultures and blood culture. Wound care with OPTi foam. Most likely will plan for repeat CT scan in next 24 hours and if stable without any collection we will plan for discharge on oral antibiotics for next 1 week. Patient states she has a daughter who lives in town who will be able to help her with dressings regularly. (2) GERD (gastroesophageal reflux disease): Continue PPI (3) Hypertension: Goal blood pressure less than 140/90 mmHg. Continue with home dose of lisinopril. (4) Anxiety: Xanax as needed (5) Hyperlipemia: Continue statin Plan DVT prophylaxis: Low risk CODE STATUS: Full code Attestations Medical Necessity Statement*: Patient requires further hospitalization for management of gluteal cellulitis without abscess with failure to outpatient oral antibiotics Diagnoses Cellulitis L03.90 GERD (gastroesophageal reflux disease) K21.9 Hypertension I10 Anxiety F41.9 Hyperlipemia E78.5
[2023-02-05 15:56] VITALS: BP 141/81; PULSE 76; RESP 18; TEMP 36.7; O2SAT 96
[2023-02-05 20:00] VITALS: BP 134/68; PULSE 68; RESP 18; TEMP 36.3; O2SAT 95
[2023-02-05] MEDS: atorvastatin 40 mg Tablet 20 MG PO (20:32)
[2023-02-05] MEDS: sennosides 8.6 mg Tablet 17.2 MG PO (21:32)
[2023-02-06] VITALS: BP 115/70; PULSE 69; RESP 17; TEMP 36.4; O2SAT 95
[2023-02-06 04:00] VITALS: BP 145/77; PULSE 63; RESP 17; TEMP 36.4; O2SAT 95
[2023-02-06 05:43] LABS: Basophils # 0.1 10^3/uL (0.0-0.1); Basophils % 0.9 %; Eosinophils # 0.3 10^3/uL (0.0-0.8); Hematocrit 39.6 % (37.0-47.0); Hemoglobin 12.7 g/dL (11.5-15.3); Lymphocytes % 29.7 %; Mean Corpuscular HGB Conc 32.1 g/dL (30.0-36.0); Mean Corpuscular Hemoglobin 29.5 pg (28.0-34.0); Mean Corpuscular Volume 91.9 fl (81-99); Mean Platelet Volume 10.5 fL (7.4-10.4); Monocytes # 0.6 10^3/uL (0.2-0.9); Monocytes % 8.8 %; Neutrophils # 3.65 10^3/uL (1.8-7.7); Neutrophils % 55.1 %; Nucleated Red Blood Cells % 0 %; Platelet Count 284 10^3/cmm (130-400); Red Blood Count 4.31 10^6/uL (4.1-5.3); Red Cell Distribution Width 12.5 % (12.1-15.1); White Blood Count 6.6 10^3/uL (4.0-10.0)
[2023-02-06] MEDS: pantoprazole DR 40 mg Tablet PO (05:49)
[2023-02-06] MEDS: lisinopril 20 mg Tablet PO (05:49)
[2023-02-06] MEDS: piperacillin-tazobactam 3.375 GM in sodium chloride 0.9% (plus) 50 ML IV (05:49)
[2023-02-06] MEDS: loratadine 10 mg Tablet PO (05:49)
[2023-02-06 06:01] LABS: Alanine Aminotransferase 22 U/L (0-33); Albumin Level 3.3 g/dL (3.5-5.2); Alkaline Phosphatase 81 U/L (35-105); Anion Gap 16.3 (5-19); Aspartate Amino Transferase 19 U/L (0-32); Blood Urea Nitrogen 13 mg/dL (8-23); Calcium 8.8 mg/dL (8.5-10.5); Carbon Dioxide 23 mmol/L (22-29); Chloride 101 mmol/L (98-107); Chol HDL Ratio 4.88 mg/dL (0.0-4.40); Cholesterol 127 mg/dL (0-200); Creatinine Clr Calc Pharmacy 80.6454; Globulin 3.5 g/dL (1.3-4.6); Glucose 115 mg/dL (65-115); HDL Cholesterol 26 mg/dL (60-100); LDL Cholesterol Calculated 80 mg/dL (50-129); Osmolality Calculated 283 mOsm/kg (285-295); Potassium 4.3 mmol/L (3.5-5.1); Sodium 136 mmol/L (136-145); Total Bilirubin 0.2 mg/dL (0.15-1.2); Total Protein 6.8 g/dL (6.6-8.7); Triglycerides 106 mg/dL (0-150); VLDL Cholestrol Calculation 21 mg/dL (0-30)
[2023-02-06 08:00] VITALS: BP 137/77; PULSE 60; RESP 16; TEMP 36.7; O2SAT 96
--- NOTE | 2023-02-06 08:03 | CT_ITS ---
WS: [id number] CT PELVIS WITHOUT CONTRAST. HISTORY: abscess vs cellulitis TECHNIQUE: Contiguous imaging is performed of the pelvis without contrast. Coronal and sagittal refor mats are reviewed. All CT scans at [facility] use at least one of these dose optimization sydney hniques: automated exposure control; mA and/or kV adjustment per patient size (includes targeted exam s where dose is matched to clinical indication); or iterative reconstruction. DLP: 698.09 mGy.cm COMPARISON: 02/02/2023 Previously described soft tissue thickening and induration centered in the LEFT gluteal region extend ing into the perineum has moderately improved. There is less consolidation and soft tissue thickening . There is no focal fluid collection or drainable collection. There is a very small amount of indurat ion on the RIGHT which is similar to the prior study. No osseous destruction. There is no evidence for osteomyelitis. No adenopathy. CT/CT pelvis wo con [id number] IMPRESSION: 1. Moderate improvement in the recently described cellulitis involving the LEF T gluteal region extending towards the perineum. There is no focal abscess or i nterval collection. 2. No adenopathy. 3. No destructive bone lesion or osteomyelitis.
--- NOTE | 2023-02-06 09:38 | P.DS_ITS ---
Discharge Providers Date of Admission: 02/03/23 16:38 Date of Discharge: February 06, 2023 Attending Provider at Admission: Bhavesh Whalen MD Attending Provider at Discharge: Aren Zhang MD Primary Care Provider: Ly Rodas MD Diagnoses at Discharge Discharge Diagnosis (1) Cellulitis: Status: Acute (2) GERD (gastroesophageal reflux disease): Status: Acute (3) Hypertension: Status: Acute (4) Anxiety: Status: Acute (5) Hyperlipemia: Status: Acute Reason for Visit Reason for Visit: abcsess, pain, fever Brief History: History as per HPI: Vero Magana is a 72 year old female with past medical history significant for hypertension, hyperlipidemia and GERD who presents to the emergency department at the direction of her family physician for further evaluation of infection on her buttocks.? Patient reports she was in her usual state of health until last Sunday after she was outside for a while and noticed pain develop on her buttocks later that day.? She was evaluated on Sunday and prescribed Bactrim for cellulitis.? Despite this, symptoms continue to worsen.? She endorses associ ated chills and fever as well as cold sweats.? Also endorses pain, swelling and erythema on left gluteal cleft.? Denies history of she is evaluated again today prior similar infections.? She was again evaluated today in primary care clinic.? Per report, there was an attempt at aspiration possible abscess however no pus was obtained.? She was evaluated in the ED for further management.? CT scan at that time showed extensive left gluteal soft tissue swelling consistent with cellulitis.? No drainable abscess or fluid collection was noted. Hospital Course Hospital Course Patient was admitted to the hospital for further evaluation and management of significant cellulitis without abscess with failure to outpatient treatment. She was started on broad-spectrum antibiotics. Her hospitalization remained unremarkable. Cultures remain negative. Repeat scan was done which ruled out abscess again and confirmed improvement of cellulitis. She has been discharged in hemodynamically stable condition with home health for regular wound care on oral Augmentin and Levaquin for next 7 days. She is to follow-up with a primary care provider within next 1 week. Physical Exam Narrative: General: Patient is awake and alert. Very pleasant. Head: Normocephalic. Atraumatic. EOM intact. Neck: No JVD. Cardiovascular: RRR. No gallops. 2+ systolic ejection murmur. Lungs: Clear to auscultation, no use of accessory muscles, no crackles or wheezes. Skin: No jaundice. Swelling, erythema, firmness, and tenderness to palpation involving the left gluteal cleft improved from prior exams. Abdomen: Normal bowel sounds, abdomen soft and nontender. Extremities: No cyanosis or clubbing. Musculoskeletal: No swollen or erythematous joints. Neurological: Moves all 4 extremities. No myoclonus. Discharge Data Studies Completed and Pending Completed Studies During Hospitalization Category Date Time Status CT pelvis w con* [id number] Stat Cat Scan 02/02/23 10:[address] pelvis wo con [id number] Routine Cat Scan 02/06/23 08:03 Completed Pending at discharge Category Date Time Status Blood Culture Stat Lab 02/02/23 10:36 Results Wound Culture Routine Lab 02/03/23 11:53 Results Radiology Impressions Pelvis CT 02/06/23 08:03 IMPRESSION: 1. Moderate improvement in the recently described cellulitis involving the LEFT gluteal region extending towards the perineum. There is no focal abscess or interval collection. 2. No adenopathy. 3. No destructive bone lesion or osteomyelitis. Microbiology 02/03/23 11:53 Buttock Wound Culture - Preliminary Coag positive Staphylococcus 02/02/23 15:23 Nose MRSA Culture - Final 02/02/23 10:24 Blood Blood Culture - Preliminary NEGATIVE TO DATE 02/02/23 10:36 Blood Blood Culture - Preliminary NEGATIVE TO DATE Laboratory Results WBC 6.6 10^3/uL (4.0-10.0) 02/06/23 05:07 RBC 4.31 10^6/uL (4.1-5.3) 02/06/23 05:07 Hgb 12.7 g/dL (11.5-15.3) 02/06/23 05:07 Hct 39.6 % (37.0-47.0) 02/06/23 05:07 MCV 91.9 fl (81-99) 02/06/23 05:07 MCH 29.5 pg (28.0-34.0) 02/06/23 05:07 MCHC 32.1 g/dL (30.0-36.0) 02/06/23 05:07 RDW 12.5 % (12.1-15.1) 02/06/23 05:07 Plt Count 284 10^3/cmm (130-400) 02/06/23 05:07 MPV 10.5 fL (7.4-10.4) H 02/06/23 05:07 Neut % (Auto) 55.1 % 02/06/23 05:07 Lymph % (Auto) 29.7 % 02/06/23 05:07 [place] % (Auto) 8.8 % 02/06/23 05:07 Eos % (Auto) 5.0 % 02/06/23 05:07 Baso % (Auto) 0.9 % 02/06/23 05:07 Neut # (Auto) 3.65 10^3/uL (1.8-7.7) 02/06/23 05:07 Lymph # (Auto) 2.0 10^3/uL (0.8-4.8) 02/06/23 05:07 [place] # (Auto) 0.6 10^3/uL (0.2-0.9) 02/06/23 05:07 Eos # (Auto) 0.3 10^3/uL (0.0-0.8) 02/06/23 05:07 Baso # (Auto) 0.1 10^3/uL (0.0-0.1) 02/06/23 05:07 Nucleated RBC % (auto) 0 % 02/06/23 05:07 Nucleated RBCs # 0.0 /100WBC 02/06/23 05:07 Sodium 136 mmol/L (136-145) 02/06/23 05:07 Potassium 4.3 mmol/L (3.5-5.1) 02/06/23 05:07 Chloride 101 mmol/L (98-107) 02/06/23 05:07 Carbon Dioxide 23 mmol/L (22-29) 02/06/23 05:07 Anion Gap 16.3 (5-19) 02/06/23 05:07 BUN 13 mg/dL (8-23) 02/06/23 05:07 Creatinine 0.6 mg/dL (0.5-0.9) 02/06/23 05:07 GFR Calculation Not Reportable 02/06/23 05:07 Glucose 115 mg/dL (65-115) 02/06/23 05:07 Estimat Average Glucose 114 02/02/23 10:24 Hemoglobin A1c 5.6 % (4.0-6.0) 02/02/23 10:24 Calculated Osmolality 283 mOsm/kg (285-295) L 02/06/23 05:07 Calcium 8.8 mg/dL (8.5-10.5) 02/06/23 05:07 Phosphorus 3.8 mg/dL (2.5-4.5) 02/05/23 05:31 Magnesium 2.3 mg/dL (1.7-2.3) 02/05/23 05:31 Iron 95 ug/dL (37-145) 02/05/23 05:31 TIBC 254 mcg/dl 02/05/23 05:31 % Saturation 37.4 % (20-50) 02/05/23 05:31 Unsat Iron Binding 159 ug/dL (112-347) 02/05/23 05:31 Total Bilirubin 0.2 mg/dL (0.15-1.2) 02/06/23 05:07 AST 19 U/L (0-32) 02/06/23 05:07 ALT 22 U/L (0-33) 02/06/23 05:07 Alkaline Phosphatase 81 U/L (35-105) 02/06/23 05:07 C-Reactive Protein 95.1 mg/L (0.0-4.9) H 02/02/23 10:24 C-Reactive Protein Cancelled 02/02/23 10:24 Total Protein 6.8 g/dL (6.6-8.7) 02/06/23 05:07 Albumin 3.3 g/dL (3.5-5.2) L 02/06/23 05:07 Globulin 3.5 g/dL (1.3-4.6) 02/06/23 05:07 Triglycerides 106 mg/dL (0-150) 02/06/23 05:07 Cholesterol 127 mg/dL (0-200) 02/06/23 05:07 LDL Cholesterol, Calc 80 mg/dL (50-129) 02/06/23 05:07 Total VLDL Cholesterol 21 mg/dL (0-30) 02/06/23 05:07 HDL Cholesterol 26 mg/dL (60-100) L 02/06/23 05:07 Cholesterol/HDL Ratio 4.88 mg/dL (0.0-4.40) H 02/06/23 05:07 Vitamin B12 355 pg/mL (232-1245) 02/05/23 05:31 Folate 12.0 ng/mL (4.8-37.3) 02/06/23 05:07 Procalcitonin 0.12 ng/mL (0-0.5) 02/02/23 10:24 TSH 1.29 uIU/mL (0.27-4.20) 02/05/23 05:31 Urine Color Yellow (Yellow) 02/02/23 10:36 Urine Appearance Clear (CLEAR) 02/02/23 10:36 Urine pH 6 (5-7) 02/02/23 10:36 Ur Specific [place] 1.015 (1.005-1.030) 02/02/23 10:36 Urine Protein Neg (Negative) 02/02/23 10:36 Urine Glucose (UA) Norm (Normal) 02/02/23 10:36 Urine Ketones Negative (Negative) 02/02/23 10:36 Urine Blood Neg (Negative) 02/02/23 10:36 Urine Nitrate Negative (Negative) 02/02/23 10:36 Urine Bilirubin 1+ (Negative) H 02/02/23 10:36 Urine Urobilinogen 1 mg/dL (Negative) H 02/02/23 10:36 Ur Leukocyte Esterase Negative (Negative) 02/02/23 10:36 Vancomycin Trough 13.2 ug/mL (10-15) 02/03/23 19:56 Vitals Last Vital Signs Temp 98.0 F 02/06/23 08:00 Pulse 60 02/06/23 08:00 Resp 16 02/06/23 08:00 BP 137/77 02/06/23 08:00 Pulse Ox 96 02/06/23 08:00 O2 Del Method Room Air 02/06/23 08:00 Discharge Plan Discharge Patient Disposition: Home Health Service Condition: Stable Prescriptions: New Augmentin 500-125 mg tablet 1 tab PO Q12H Qty: 14 0RF levofloxacin 500 mg tablet 500 mg PO Q24H 7 Days Qty: 7 0RF Continued fluticasone propionate 50 mcg/actuation spray,suspension 2 spray intranasal DAILY PRN (Reason: Allergy Symptoms) pantoprazole 40 mg tablet,delayed release (DR/EC) 20 mg PO QAM simvastatin 40 mg tablet 40 mg PO QAM lisinopril 20 mg tablet 20 mg PO QAM (DME) Accu-Chek Maria G Plus test strp Strip See Rx Instructions .ROUTE .MEDSUPPLY Qty: 10 Rx Instructions: As directed ascorbate calcium (vitamin C) 500 mg tablet 1,000 mg PO QAM krill oil 500 mg capsule 500 mg PO QAM loratadine 10 mg tablet 10 mg PO QAM Xanax 0.25 mg Tablet 0.25 mg PO DAILY PRN (Reason: Anxiety) calcium carbonate 500 mg calcium (1,250 mg) Tablet 1,000 mg PO QAM Discontinued sulfamethoxazole-trimethoprim 800-160 mg tablet 1 tab PO BID Rx Instructions: for 7 days (rx filled 01/30/23) Discharge Orders: Discharge Order (Routine); Ordered 02/06/23 Ordered By: Aren Zhang Referrals: Ly Rodas MD [Primary Care Provider] - 02/08/23 10:00 am Discharge Diet: Cardiac Discharge Activity: Resume usual activity and Increase activity as tolerated Patient Instructions: Cellulitis, Amoxicillin (By mouth) (Amoxicot, Amoxil, Amoxil Pediatric, Trimox), Levofloxacin (By mouth), Acute Wound Care (GEN), Opioid Safety Activity Restrictions/Additional Instructions: Augmentin and Levaquin which are the antibiotics for next 7 days. Augmentin w ill be twice daily and Levaquin will be once daily. Please keep the wound as dry as possible. Continue doing wound dressings daily. Continue doing your regular physical activities. Make sure to offload the area of the wound. Please follow-up with your primary care provider in the next 1 week. Discharge Attestations Time Spent in Discharge Care*: greater than 30 min Specific Discharge Activities: educating patient, educating and/or supporting family/caregiver, discussing with pcp/other providers, discussing with case packer and sealer/social workers/dc planners, documenting/other paperwork and evaluating patient/reviewing data Status at Discharge: Cognitive status at discharge: cognitively intact , Behavioral status at discharge: cooperative , Functional status at discharge: independent ambulation , Overall status at discharge: patient is back to baseline Quality Metrics Clinical Quality Measures [ No reported AMI, CVA or VTE this stay] Coding Level of Care Code 03249 Total time (in minutes) for Discharge: 60 Diagnoses Cellulitis L03.90 GERD (gastroesophageal reflux disease) K21.9 Hypertension I10 Anxiety F41.9 Hyperlipemia E78.5
[2023-02-06 11:04] VITALS: BP 132/76; PULSE 66; RESP 20; TEMP 36.1
--- NOTE | 2023-02-06 13:09 | PC.SOCIAL ---
IMM Update pg 2 of IMM updated and reviewed w/ patient. Copy provided and Copy dated, initialed and placed in chart.
--- NOTE | 2023-02-06 13:26 | PC.NURSE ---
Discussed discharge follow up appointment, new medication, discontinued medications and medications to continue. Patient verbalized understanding.
--- NOTE | 2023-02-06 14:53 | PC.NURSE ---
Notified Dr. Cervantes of wound culture growing MRSA at 1450. Message was read with no response at this time.
[2023-02-06 15:30] VITALS: BP 132/76; PULSE 66; RESP 20; TEMP 36.1
--- NOTE | 2023-02-06 16:38 | PC.NURSE ---
Dr. Zhang called and needed to change patient's antibiotics after the patient discharged. Organisms seen on culture and sensitivity that suggested a different medication would work. This nurse called [facility] in [place] per Physicians orders Linezolid 600mg BID for 7 days. Called patient and updated her that the physician did not want her to take her Augmentin that she picked up but wanted her to take Linezolid instead. She understood and all questions answered.
== END 2023-02-06 15:30 | disposition home health service (06) | DRG 603 ==
LOC: ER 10:25 → MEDSURG 13:42
PROVIDERS: Admitting Provider Internal Medicine; Emergency Provider Family Medicine; PCP Family Medicine; Visit Provider Student in an Organized Health Care Education/Training Program
DX: L03.317 Cellulitis of buttock (principal); E78.5 Hyperlipidemia, unspecified; I10 Essential (primary) hypertension; K21.9 Gastro-esophageal reflux disease without esophagitis; F41.9 Anxiety disorder, unspecified
CPT/HCPCS: 36415; 72192; 72193; 80048; 80053; 80061; 80069; 80202; 81003; 82607; 82746; 83036; 83540; 83550; 83735; 84100; 84145; 84443; 85025; 86140; 87040; 87070; 87077; 87186; 87641; 96365; 96375; 99285; G0378; J0696; J2270; J2405; J2543; J3370; J7030; J7050; Q9967

== ENCOUNTER → 2023-05-10 14:57 | Outpatient (BNVA) | payer MEDICARE, SELFPAY | PROVIDERS: PCP Family Medicine; Visit Provider Dermatology | DX: L30.0 Nummular dermatitis (principal); L57.0 Actinic keratosis; D18.01 Hemangioma of skin and subcutaneous tissue; L82.1 Other seborrheic keratosis; L81.4 Other melanin hyperpigmentation | CPT/HCPCS: 17000; 99213 ==

== ENCOUNTER 2024-02-21 12:17 | Outpatient (CLI) | payer MEDICARE, SELFPAY ==
--- NOTE | 2024-02-21 12:32 | MM_ITS ---
WS: [id number] BILATERAL SCREENING DIGITAL TOMOSYNTHESIS MAMMOGRAM WITH CAD HISTORY: SCREENING COMPARISON: 01/23/2023, 07/04/2021 Bilateral CC and MLO views with tomosynthesis and synthetic mammography submitted. Computer aided det ection analyzed. Breast composition: There are scattered areas of fibroglandular density. No suspicious masses, microc alcifications or architectural distortion. Benign lucent centered calcifications and scattered puncta te calcifications within each breast. MM/[place] [id number] IMPRESSION: BI-RADS: 2-Benign FOLLOW UP: 1 Year Follow-up
--- NOTE | 2024-02-21 12:32 | XR_ITS ---
WS: [id number] DEXA (DUAL ENERGY X-RAY ABSORPTIOMETRY) Bone mineral density was performed using a 2can machine. HISTORY: ASYMPTOMATIC MENOPAUSAL STATE COMPARISON: 07/04/2021 Lumbar spine BMD (L1-L4): 1.407 T score: 1.7 Z score: 2.3 Total hip BMD: Left: 1.130 g/cm2. T score: 1.0 Z score: 1.7 Right: 1.039 g/cm2. T score: 0.2 Z score: 1.0 10 year probability of a major osteoporotic fracture is 7.8%. Compared to the prior study from 07/04/2021. Lumbar spine bone mineral density has increased by 3.8%. Bilateral hips bone mineral density has increased by 0.3%. XR/XR DEXA axial skeleton* [id number] IMPRESSION: NORMAL BONE MINERAL DENSITY based upon the WHO classification for females. Significant increase in bone mineral density within the lumbar spine since the prior study. No significant change of the bone mineral density within the hips.
== END 2024-02-21 12:18 | disposition home or self-care (01) ==
LOC: RAD 12:19
PROVIDERS: PCP Family Medicine; Visit Provider Family Medicine
DX: Z78.0 Asymptomatic menopausal state (principal); Z12.31 Encounter for screening mammogram for malignant neoplasm of breast; R92.323 Mammographic fibroglandular density, bilateral breasts; R92.8 Other abnormal and inconclusive findings on diagnostic imaging of breast
CPT/HCPCS: 77063; 77067; 77080

== ENCOUNTER → 2024-05-08 10:19 | Outpatient (BNVA) | payer MEDICARE, SELFPAY | PROVIDERS: PCP Family Medicine; Visit Provider Nurse Practitioner Family | DX: L57.0 Actinic keratosis (principal); L30.0 Nummular dermatitis; L81.7 Pigmented purpuric dermatosis; D18.01 Hemangioma of skin and subcutaneous tissue; L82.1 Other seborrheic keratosis; L81.4 Other melanin hyperpigmentation | CPT/HCPCS: 17000; 99213 ==

== ENCOUNTER → 2025-03-20 10:22 | Outpatient (BNVA) | payer MEDICARE, OTHER, SELFPAY | PROVIDERS: PCP Family Medicine; Visit Provider Family Medicine | DX: I10 Essential (primary) hypertension (principal); E78.2 Mixed hyperlipidemia; E11.9 Type 2 diabetes mellitus without complications | CPT/HCPCS: 80053; 80061; 83036; 84439; 84443; 85025 ==

== ENCOUNTER → 2025-05-19 15:21 | Outpatient (BNVA) | payer MEDICARE, OTHER, SELFPAY | PROVIDERS: PCP Family Medicine; Visit Provider Nurse Practitioner Family | DX: L30.0 Nummular dermatitis (principal); L81.7 Pigmented purpuric dermatosis; D18.01 Hemangioma of skin and subcutaneous tissue; L82.1 Other seborrheic keratosis; L81.4 Other melanin hyperpigmentation | CPT/HCPCS: 99213 ==

== ENCOUNTER 2025-07-20 09:40 | Outpatient (CLI) | payer MEDICARE, OTHER, SELFPAY ==
--- NOTE | 2025-07-20 09:43 | MM_ITS ---
WS: [id number] VIEWS: MLO and CC views both breasts. 3D digital tomosynthesis is also included in this exam. Comparison made with prior exam of 05/06/2015, 10/04/2016, 11/12/2018, 810 1121, 01/23/2023, 02/21/2024, 01/20/2009, 01/12/2011, 03/21/2013,. Findings: There are scattered areas of fibroglandular density. No suspicious mass, tumor calcification or architectural distortion. Stable appearing small nodules and benign-appearing calcifications noted. MM/MM scr BI tomosynthesis [id number] Impression: BI-RADS: 2 - Benign. FOLLOW-UP: 1 Year Follow-up This mammogram was also analyzed by the Computer Aided Detection System R2 Imag e Rrt.
== END 2025-07-20 09:41 | disposition home or self-care (01) ==
LOC: RAD 09:41
PROVIDERS: PCP Family Medicine; Visit Provider Family Medicine
DX: Z12.31 Encounter for screening mammogram for malignant neoplasm of breast (principal); R92.323 Mammographic fibroglandular density, bilateral breasts; R92.1 Mammographic calcification found on diagnostic imaging of breast
CPT/HCPCS: 77063; 77067